=== PATIENT | female | born 1955 | race Caucasian/White ===

== ENCOUNTER → 2016-04-08 | Outpatient (CLI) | payer BC ==
--- NOTE | 2016-04-09 15:11 | MAMMOGRAPHY REPORT ---
BILATERAL DIGITAL SCREENING MAMMOGRAM TOMOSYNTHESIS WITH CAD: 04/08/2016 CLINICAL HISTORY: Routine screening. Patient has no complaints. TECHNIQUE: Breast tomosynthesis in addition to standard 2D mammography was performed. Current study was also evaluated with a Computer Aided Detection (CAD) system. COMPARISON: Comparison is made to exams dated: 04/05/2015 mammogram, 04/04/2014 mammogram, 04/01/20 13 mammogram, 03/16/2012 mammogram, 03/13/2011 mammogram, and 02/27/2010 mammogram - [facility]. BREAST COMPOSITION: The tissue of both breasts is almost entirely fatty. FINDINGS: There is asymmetry of the size of the breasts, likely normal anatomic variation. There ar e benign been calcifications within the left breast. No suspicious mass, architectural distortion o r cluster of microcalcifications is seen. IMPRESSION: ACR BI-RADS CATEGORY 1: NEGATIVE There is no mammographic evidence of malignancy. A 1 year screening mammogram is recommended. The p atient will receive written notification of the results. Approximately 10% of breast cancers are not detected with mammography. A negative mammographic repor t should not delay biopsy if a clinically suggestive mass is present. Mary Bruner M.D. ay/:04/08/2016 16:22:16 Information Security Director: Catarina MILNER)(Tu)(), [facility] letter sent: Normal 1/2 BI-RADS Code: ACR BI-RADS Category 1: Negative
== END | disposition home or self-care (01) ==
LOC: C.MAMM 14:54
PROVIDERS: ATTEND Student in an Organized Health Care Education/Training Program
DX: Z12.31 Encounter for screening mammogram for malignant neoplasm of breast (principal)

== ENCOUNTER → 2016-12-06 | Outpatient (CLI) | payer BC ==
--- NOTE | 2016-12-06 17:27 | DIAGNOSTIC IMAGING REPORT ---
ABD/PELVIS NO IV OR ORAL CONT HISTORY: 61 years-old Female acute left lower quadrant ABDOMINAL PAIN, DIARRHEA COMPARISON: Pelvic ultrasound 10/07/2006 TECHNIQUE: Multiple axial CT images of the abdomen and pelvis were obtained without IV contrast. A dose lowering technique was used consistent with the principals of UNA. FINDINGS: Lung bases are generally clear. There is minimal subsegmental left basilar atelectasis. No pneumoperitoneum identified. The imaged inferior cardiac chambers are unremarkable. Hepatomegaly with hepatosteatosis is noted. Prior cholecystectomy. Spleen, pancreas and adrenal glands are within normal limits. Calcifications of the left gonadal vein noted. Kidneys, ureters and urinary bladder are unremarkable. Prior hysterectomy. The abdominal aorta is normal in course and caliber. No bulky adenopathy. There is no bowel obstruction. Scattered metallic density foci are seen throughout the abdomen. Colonic diverticula of the descending colon are noted with focal area of mild wall thickening with subtle surrounding inflammatory stranding is seen on image 200 of the axial series. The appendix appears normal. Prior ventral abdominal wall herniorrhaphy with mild diastases. No recurrent abdominal wall hernia identified. Patient obesity is noted. Multilevel facet arthrosis involves the lower lumbar spine. Moderate intervertebral disc space narrowing noted at L5-S1. IMPRESSION: 1. Subtle mild wall thickening with surrounding inflammatory stranding involves the descending colon where there are a few scattered colonic diverticula noted, suspicious for developing acute diverticulitis or colitis. 2. Normal appendix. 3.Hepatomegaly with hepatosteatosis . 4. Prior cholecystectomy and hysterectomy. The above report was generated using voice recognition software. It may contain grammatical, syntax or spelling errors. Electronically signed by: Yao Linares M.D. 12/06/2016 5:26 PM Dictated Date/Time: 12/06/2016 5:19 PM
== END | disposition home or self-care (01) ==
LOC: C.CTS 17:05
PROVIDERS: ATTEND Family Medicine
DX: R10.32 Left lower quadrant pain (principal); R19.7 Diarrhea, unspecified; R16.0 Hepatomegaly, not elsewhere classified; K76.0 Fatty (change of) liver, not elsewhere classified

== ENCOUNTER → 2017-04-09 | Outpatient (CLI) | payer BC ==
[~2017-04-09] MED LIST: FLUO10CA48 PO; FLUO20CA35 PO; HYDR-389 PO; HYZ/10015 PO; INSDGI SC; LEVO150T PO; METF750T PO; METO25TA3 PO; PRLSR20 PO; ROSU5TAB PO; SITA100T3 PO
--- NOTE | 2017-04-10 12:47 | MAMMOGRAPHY REPORT ---
BILATERAL DIGITAL SCREENING MAMMOGRAM TOMOSYNTHESIS WITH CAD: 04/09/2017 CLINICAL HISTORY: Routine screening. Patient has no complaints. TECHNIQUE: Breast tomosynthesis in addition to standard 2D mammography was performed. Current study was also evaluated with a Computer Aided Detection (CAD) system. COMPARISON: Comparison is made to exams dated: 04/08/2016 mammogram, 04/05/2015 mammogram, 04/04/2014 mammogram, 04/01/2013 mammogram, 03/16/2012 mammogram, and 03/13/2011 mammogram - [facility]. BREAST COMPOSITION: The tissue of both breasts is almost entirely fatty. FINDINGS: No suspicious masses, calcifications, or areas of architectural distortion are noted in ei ther breast. There has been no significant interval change compared to prior exams. IMPRESSION: ACR BI-RADS CATEGORY 1: NEGATIVE There is no mammographic evidence of malignancy. A 1 year screening mammogram is recommended. The pa tient will receive written notification of the results. Approximately 10% of breast cancers are not detected with mammography. A negative mammographic report should not delay biopsy if a clinically suggestive mass is present. Maribel Mobley M.D. ah/:04/09/2017 15:36:49 Embryology Teacher: Sophie HILLS(Chloé)(M), [facility] letter sent: Normal 1/2 BI-RADS Code: ACR BI-RADS Category 1: Negative
== END | disposition home or self-care (01) ==
LOC: C.MAMM 14:51
PROVIDERS: ATTEND Student in an Organized Health Care Education/Training Program
DX: Z12.31 Encounter for screening mammogram for malignant neoplasm of breast (principal)

== ENCOUNTER → 2017-11-25 | Day surgery (SDC) | payer BC, OTHER ==
[2017-11-11 11:49] VITALS: Ht 152.4 cm; Wt 93.2 kg
[~2017-11-25] VITALS: Ht 152.4 cm; Wt 93.2 kg
[~2017-11-25] MED LIST changes: +500ML BSS 0.3ML EPI 1:1000PF IRRIG ONE; +ACETAMINOPHEN 325 MG TAB PO PRN; +AMVISC PLUS 0.8ML SYRINGE INT OCU ONE; +ATROPINE SULFATE 0.1 MG/ML 5ML SYR IV PRN; +BSS FLUSH ONE; +EpHEDrine SULFATE INJ 50 MG/ML AMP IV PRN; +EpINEphrine INJ 1MG/ML AMP 1 MG/ML AMP ONE; -FLUO10CA48 PO; +LACTATED RINGER'S 1000ML 500 ML IV SCH; +LIDOCAINE 3.5% OPH GEL PER APPLICATION CHARGE ONE; +LIDOCAINE HCL 1% MPF 2 ML VIAL ONE; +MIDAZOLAM HCL 1 MG/ML 2ML VIAL ONE; +OCUCOAT 1 ML SOLN IO ONE; +PHENYLEPHRINE HCL 10% OP SOLN PER DROP CHARGE OPR SCH; +POVIDONE-IODINE OP SOLN 30 ML BTL ONE; +PROPARACAINE 0.5% OP SOLN PER DROP CHARGE OPR SCH; +TOBRAMYCIN/DEXAMETHASONE OPH OINT PER APPLN CHARGE ONE
[2017-11-25] MEDS: PHENYLEPHRINE HCL 2.5% OP SOLN PER DROP CHARGE OPR SCH ×2 (11:21→11:26)
[2017-11-25] MEDS: TROPICAMIDE 1% OP SOLN PER DROP CHARGE OPR SCH ×2 (11:22→11:27)
[2017-11-25] MEDS: CYCLOPENTOLATE HCL 1% OP SOLN PER DROP CHARGE OPR SCH ×2 (11:23→11:28)
[2017-11-25] MEDS: KETOROLAC 0.5% OP SOLN PER DROP CHARGE OPR SCH ×2 (11:24→11:29)
[2017-11-25] MEDS: GATIFLOXACIN OP SOLN PER DROP CHARGE OPR SCH ×2 (11:25→11:36)
--- NOTE | 2017-11-25 11:55 | History & Physical Bridge - SC ---
H&P Re-Evaluation Bridge Note: I have examined the patient, reviewed the History & Physical and in the interval since the performance of the History & Physical I have noted the following changes of clinical significance: Diagnosis: Right Cataract Procedure: Right Cataract Removal with Lens Implant No changes noted
--- NOTE | 2017-11-25 12:27 | [facility] Operative Report ---
Operative Report Date of Service Nov 25, 2017. Operative Report 1. PREOPERATIVE DIAGNOSIS: Cataract of the right eye. 2. POSTOPERATIVE DIAGNOSIS: Same. 3. PROCEDURE: Phacoemulsification with intraocular lens implantation of the right eye. SURGEON: Dr. Tevin Craft. ANESTHESIA: Topical Lidocaine gel, 1% Non- Preserved intracameral Lidocaine, and monitored intravenous sedation. INDICATIONS FOR THE PROCEDURE: The patient is a 62 - year-old female with a history of cataract of the right eye causing significant visual impairment. The details of the proposed procedure were explained to the patient who asked appropriate questions and following discussion of all risks, benefits and alternatives agreed to have the procedure done. 4. OPERATION AND FINDINGS: DESCRIPTION OF PROCEDURE: After informed consent was obtained, the patient was brought to the Operating Room at the [facility]. The patient was placed in a supine position and then the right eye was prepped and draped in the usual sterile fashion for intraocular surgery. A drop of topical Lidocaine gel was placed in the operative eye. A wire lid speculum was then placed in the fornices. A corneal paracentesis was then created temporally. The Non-Preserved Lidocaine was then instilled into the anterior chamber. The anterior chamber was then pressurized with viscoelastic. A 2.0 mm clear corneal incision was then created temporally. A cystotome was inserted into the anterior chamber and used to create a tear in the anterior lens capsule. This capsular tear was then used to create a small flap and the flap was dragged in a counterclockwise direction in order to create a continuous curvilinear capsulorrhexis. Hydrodissection was accomplished with balanced salt solution. Phacoemulsification of the lens nucleus was then performed in a standard [id number] technique. The phaco time was 12 seconds with an average power of 7 %. The remaining cortical material was removed using irrigation aspiration. The capsular bag was then filled with viscoelastic. A [employer] MI60L +16.0 diopters lens was then loaded into the injector and injected into the capsular bag. The remaining viscoelastic was removed with the irrigation aspiration handpiece. The wound was hydrated and then checked and found to be watertight. The intraocular pressure was checked and found to be adequate. The wire lid speculum was removed and the patient's face was cleaned and dried. TobraDex ointment was placed in the inferior fornix. The patient was discharged to the Recovery Room having tolerated the procedure well. There were no complications. The patient will be seen tomorrow in the office for follow-up. I attest to the content of the Intraoperative Record and any orders documented therein. Any exceptions are noted below.
--- NOTE | 2017-11-25 12:28 | Discharge Instructions-SurgCtr ---
Discharge Instructions Date of Service Nov 25, 2017. Visit Reason for Visit: Right Cataract Discharge Discharge Diagnosis / Problem: cataract Discharge Goals Goal(s): Improve function Activity Recommendations Activity Limitations: per Instructions/Follow-up section Anesthesia . Post Anesthesia Instructions: If you have had General Anesthesia or IV Sedation: * Do not drive today. * Resume driving when surgeon permits. * Do not make important decisions or sign legal documents today. * Call surgeon for: 1. Temperature elevations greater than 101 degrees F. 2. Uncontrollable pain. 3. Excessive bleeding. 4. Persistent nausea and vomiting. 5. Medication intolerance (nausea, vomiting or rash). * For nausea and vomiting use only clear liquids such as: tea, soda, bouillon until nausea subsides, then gradually increase diet as tolerated. * If you have any concerns or questions, call your surgeon's office. If physician is unavailable and it is an emergency, call 911 or go to the nearest emergency room. . Diet Recommendations Home Diet: resume previous diet Procedures Procedures Performed: Right Cataract Phacoemulsification With Intraocular Lens Implant Pending Studies Studies pending at discharge: no Medical Emergencies . Who to Call and When: Medical Emergencies: If at any time you feel your situation is an emergency, please call 911 immediately. . Non-Emergent Contact Non-Emergency issues call your: [employer] . . "Provider Documentation" section prepared by Tevin Craft. .
[2017-11-25 12:38] VITALS: TEMP 36.8
[2017-11-25 12:52] VITALS: BP 128/71; PULSE 66; O2SAT 99
--- NOTE | 2017-11-25 13:01 | Anesthesia Progress Nt - [facility] ---
Anesthesia Post Op Note Date & Time Nov 25, 2017 at 12:59 Vital Signs Pain Intensity: 0 Vital Signs Past 12 Hours Date Time Temp Pulse Resp B/P (MAP) Pulse Ox O2 Delivery O2 Flow Rate FiO2 11/25/17 12:52 66 18 128/71 (90) 99 Room Air 11/25/17 12:38 36.8 68 12 127/80 (96) 97 Room Air 11/25/17 11:03 37.0 75 18 145/85 (105) 97 Room Air Notes Mental Status: alert / awake / arousable, participated in evaluation Pt Amnestic to Procedure: Yes Nausea / Vomiting: adequately controlled Pain: adequately controlled Airway Patency, RR, SpO2: stable & adequate BP & HR: stable & adequate Hydration State: stable & adequate Anesthetic Complications: no major complications apparent
== END | disposition home or self-care (01) ==
LOC: X.SURG 10:49
PROVIDERS: ATTEND Ophthalmology
DX: E11.36 Type 2 diabetes mellitus with diabetic cataract (principal); K21.9 Gastro-esophageal reflux disease without esophagitis; E03.9 Hypothyroidism, unspecified; E78.5 Hyperlipidemia, unspecified; I10 Essential (primary) hypertension; E78.00 Pure hypercholesterolemia, unspecified; Z79.4 Long term (current) use of insulin; Z87.891 Personal history of nicotine dependence; Z88.8 Allergy status to other drugs, medicaments and biological substances; Z88.0 Allergy status to penicillin; Z88.1 Allergy status to other antibiotic agents; Z88.2 Allergy status to sulfonamides